=== PATIENT | male | born 1990 | race American Indian/Alaskan Native ===

== ENCOUNTER 2018-01-15 08:07 | Emergency (ER) | payer OTHER ==
[2018-01-15 08:17] VITALS: BP 132/94
[2018-01-15] MEDS ORDERED: MOTRIN PO ONE (09:39)
--- NOTE | 2018-01-15 09:43 | Emergency Department Report ---
HPI - General Chief Complaint: Pain General Time Seen by Provider: 01/15/18 09:32 - HPI HPI: 27-year-old -[place] male comes in complaining of sharp pain in the right ribs side for one day. Patient reports the pain is worse with movement taking deep breaths and stretching. He denies any shortness of breathing no recent trauma. He did report that he had a cough no fever no chills no trauma he does recall picking up heavy objects in the office. He reports his been taking ibuprofen and Aleve in the last 24 hours. He has no past medical history currently takes no medications on a daily basis and has no known drug allergies. ED Past Medical Hx - Past Medical History Previous Medical History?: No - Surgical History Additional Surgical History: bone graft in neck - Social History Smoking Status: Current Every Day Smoker Substance Use Type: None - Medications Home Medications: Home Medications Medication Instructions Recorded Confirmed Last Taken Type Baclofen [Lioresal] 10 mg PO TID #12 tab 01/15/18 Unknown Rx Naproxen [Naprosyn] 500 mg PO BID #20 tablet 01/15/18 Unknown Rx ED Review of Systems ROS: Stated complaint: RIGHT FLANK PAIN Other details as noted in HPI Constitutional: denies: chills, fever Eyes: as per HPI ENT: denies: ear pain, throat pain Respiratory: denies: cough, shortness of breath, wheezing Cardiovascular: denies: chest pain, palpitations Endocrine: no symptoms reported Gastrointestinal: denies: abdominal pain, nausea, diarrhea Genitourinary: denies: urgency, dysuria Musculoskeletal: other (right lateral side rib pain and chest worse with deep breath and movement) Skin: denies: rash, lesions Neurological: denies: headache, weakness, paresthesias Psychiatric: denies: anxiety, depression Hematological/Lymphatic: denies: easy bleeding, easy bruising Physical Exam - Physical Exam Vital Signs: Vital Signs 01/15/18 08:14 Temperature 97.4 F L Pulse Rate 69 Respiratory 16 Rate Blood Pressure 132/94 O2 Sat by Pulse 97 Oximetry Physical Exam: GENERAL: Alert and oriented x3, no apparent distress, Normal Gait, atraumatic. HEAD: Head is normocephalic and a-traumatic. EYES: Extra ocular muscles are intact. Pupils are equal, round, and reactive to light and accommodation. EARS: symetrical, atraumatic, NOSE: Nose symetrical, Nontender,Nares appeared normal. MOUTH:Mouth is well hydrated and without lesions. Patent airways. NECK: Supple. Non edematous, No carotid bruits. No lymphadenopathy or thyromegaly. LUNGS: Symetrical with respiration, No wheezing, no rales or crackles, CTAB. HEART: S1, S2 present, regular rate and rhythm without murmur, no rubs, no gallops. EXTREMITIES/MUSCULOSKELETAL: No cyanosis, clubbing, rash, lesions or edema. Full ROM bilaterally. UE/LE Pulses 2+ bilaterally. LE and UE 5+ strength bilaterally NEUROLOGIC: No focal Deficit, Cranial nerves II through XII are grossly intact. PSYCHIATRIC: Mood is congruent with affect, SKIN: Warm and dry, No lesions, No ulceration or induration present ED Course Vital Signs 01/15/18 08:14 Temperature 97.4 F L Pulse Rate 69 Respiratory 16 Rate Blood Pressure 132/94 O2 Sat by Pulse 97 Oximetry ED Medical Decision Making - Radiology Data Radiology results: report reviewed, image reviewed ROUTINE CHEST, TWO VIEWS: HISTORY: Right sided chest pain, pleuritic chest pain. The trachea, heart, mediastinal contour, lung guillory and bony thorax are unremarkable. IMPRESSION: Unremarkable chest x-ray. Transcribed By: TTR Dictated By: MAKENNA REIS JR, MD Electronically Authenticated By: MAKENNA REIS JR, MD Signed Date/Time: 01/15/18 1019 - Medical Decision Making Patient's been evaluated by this provider fast track. I discussed the patient we will do a chest x-ray given him ibuprofen 800 mg those are negative we will diagnose a little costochondritis. Informed to continue with ibuprofen or naproxen for pain management. Patient verbalized understanding. Critical care attestation.: If time is entered above; I have spent that time in minutes in the direct care of this critically ill patient, excluding procedure time. ED Disposition Clinical Impression: Atypical chest pain, Costochondritis, acute Disposition: DC-01 TO HOME OR SELFCARE Is pt being admited?: No Does the pt Need Aspirin: No Condition: Stable Instructions: Chest Pain (ED) Additional Instructions: Chest x-ray was negative. He can take naproxen and baclofen for your costochondritis that will help with her pain. Follow up with her primary care provider if symptoms persist or gets worse. Prescriptions: Baclofen [Lioresal] 10 mg PO TID #12 tab Naproxen [Naprosyn] 500 mg PO BID #20 tablet Referrals: PRIMARY CARE, [Primary Care Provider] - 3-5 Days Forms: Work/School Release Form(ED)
--- NOTE | 2018-01-15 10:28 | XRay Report ---
ROUTINE CHEST, TWO VIEWS: HISTORY: Right sided chest pain, pleuritic chest pain. The trachea, heart, mediastinal contour, lung guillory and bony thorax are unremarkable. IMPRESSION: Unremarkable chest x-ray.
== END 2018-01-15 10:55 | disposition home or self-care (01) ==
LOC: ED 08:07
DX: M94.0 Chondrocostal junction syndrome [Tietze] (principal); R07.89 Other chest pain; F17.200 Nicotine dependence, unspecified, uncomplicated
CPT/HCPCS: 71046